=== PATIENT | female | born 1955 | race Hispanic/Latino ===

== ENCOUNTER 2018-08-21 18:57 | Emergency (ER) | payer MEDICARE, MEDICAID ==
[2018-08-21 22:15] LABS: BASO % 0.7 % (0.0-2.0); EOS % 0.6 % (0.0-4.0); HEMOGLOBIN 10.8 g/dL (12.0-16.0); LYMPH # 1.3 K/uL (1.0-4.3); LYMPH % 39.2 % (20.0-40.0); MEAN CELL VOLUME 90.3 fl (81.0-99.0); MEAN CORPUSCULAR HEMOGLOBIN 29.6 pg (27.0-31.0); MEAN CORPUSCULAR HGB CONC 32.8 g/dL (33.0-37.0); MEAN PLATELET VOLUME 7.5 fl (7.2-11.7); MONO # 0.3 K/uL (0.0-0.8); MONO % 8.4 % (0.0-10.0); NEUT # 1.6 K/uL (1.8-7.0); NEUT % 51.1 % (50.0-75.0); NRBC % 0.1 % (0.0-0.0); RBC 3.65 Mil/uL (3.80-5.20); RED CELL DISTRIBUTION WIDTH 14.6 % (11.5-14.5); WHITE BLOOD COUNT 3.2 K/uL (4.8-10.8)
[2018-08-21 22:25] LABS: ALB/GLOB RATIO 1.2 (1.0-2.1); ALBUMIN 4.2 g/dL (3.5-5.0); ALT/SGPT 24 U/L (9-52); AST/SGOT 23 U/L (14-36); BLOOD UREA NITROGEN 16 mg/dl (7-17); GFR NON-AFRICAN AMERICAN > 60
--- NOTE | 2018-08-21 22:29 | ED PDOC ---
HPI: Seizure Time Seen by Provider: 08/21/18 20:40 Chief Complaint (Nursing): Seizure Chief Complaint (Provider): possible seizure History Per: Patient, EMS Recent Seizure Activity Began: Just Before Arrival Length Of Seizures (Duration): Unknown Associated Symptoms: Injury As A Result Of Seizure Activity (left knee) Additional Complaint(s): 63 y/o female history of epilepsy brought in by EMS for evaluation of possible seizure. Patient states she was walking to the bus stop and then woke up on the ground. Patient states she does not remember falling. Patient reports pain to left knee. Denies headache, dizziness, extremity numbness/weakness, neck/back pain, chest pain, shortness of breath, palpitations, abdominal pain, bowel/urine incontinence. Patient states she is compliant with her seizure medication Past Medical History Reviewed: Historical Data, Nursing Documentation Vital Signs: Last Vital Signs Temp 98 F 08/21/18 18:59 Pulse 76 08/21/18 18:59 Resp 16 08/21/18 18:59 BP 135/90 08/21/18 18:59 Pulse Ox 99 08/21/18 18:59 - Medical History PMH: Asthma, Seizures Denies: HIV, Chronic Kidney Disease - Surgical History Surgical History: No Surg Hx - Family History Family History: States: Unknown Family Hx - Immunization History Hx Tetanus Toxoid Vaccination: No Hx Influenza Vaccination: No Hx Pneumococcal Vaccination: No - Home Medications Home Medications: Ambulatory Orders Medication Instructions Recorded Lacosamide [Vimpat] 100 mg PO BID #0 tab 12/10/15 Topiramate [Topamax] 200 mg PO BID #0 tab 12/10/15 Naproxen [Naprosyn] 500 mg PO Q12 PRN #14 tablet 08/21/18 - Allergies Allergies/Adverse Reactions: Allergies Allergy/AdvReac Type Severity Reaction Status Date / Time phenytoin sodium Allergy URTICARIA Verified 08/21/18 18:58 [From Dilantin] phenytoin sodium extended Allergy URTICARIA Verified 08/21/18 18:58 [From Dilantin] Sulfa (Sulfonamide Allergy RASH Verified 08/21/18 18:58 Antibiotics) Review of Systems ROS Statement: Except As Marked, All Systems Reviewed And Found Negative Musculoskeletal: Positive for: Leg Pain (left knee pain) Physical Exam - Reviewed Nursing Documentation Reviewed: Yes Vital Signs Reviewed: Yes - Physical Exam Appears: Positive for: Well, Non-toxic, No Acute Distress Head Exam: Positive for: ATRAUMATIC, NORMAL INSPECTION, NORMOCEPHALIC Skin: Positive for: Normal Color Eye Exam: Positive for: Normal appearance, EOMI, PERRL ENT: Positive for: TM Is/Are (clear bilaterally), Other (abrasion to bridge of nose and chin; no swelling, tenderness). Negative for: Pharyngeal Erythema, Tonsillar Exudate, Tonsillar Swelling Neck: Positive for: Normal, Painless ROM Cardiovascular/Chest: Positive for: Regular Rate, Rhythm Respiratory: Positive for: Normal Breath Sounds Back: Positive for: Normal Inspection Extremity: Positive for: Normal ROM, Swelling (left patella with + abrasions, ecchymosis. Pain with flexion) Neurologic/Psych: Positive for: Alert, Oriented (x3) - Laboratory Results Result Diagrams: 08/21/18 22:05 08/21/18 22:05 Lab Results: Total Bilirubin 0.1 mg/dl (0.2-1.3) L 08/21/18 22:05 AST 23 U/L (14-36) 08/21/18 22:05 ALT 24 U/L (9-52) 08/21/18 22:05 Alkaline Phosphatase 80 U/L (38-126) 08/21/18 22:05 Total Protein 7.7 G/DL (6.3-8.2) 08/21/18 22:05 Albumin 4.2 g/dL (3.5-5.0) 08/21/18 22:05 Globulin 3.5 gm/dL (2.2-3.9) 08/21/18 22:05 Albumin/Globulin Ratio 1.2 (1.0-2.1) 08/21/18 22:05 - ECG ECG: Positive for: Viewed By Me (reviewed by ED attending) ECG Rhythm: Positive for: Sinus Bradycardia (59bpm), Nonspecific Changes O2 Sat by Pulse Oximetry: 99 - Progress ED Course And Treament: -accucheck -ekg -cbc -cmp -CT head -Ct facial bones -left knee xray -PO tylenol EXAM: CT Maxillofacial without Intravenous Contrast. CLINICAL HISTORY: Fall, injury TECHNIQUE: Axial computed tomography images of the face without intravenous contrast. Sagittal and coronal reformatted images were generated. 740.44 mGy-cm CONTRAST: Without COMPARISON: None provided. FINDINGS: BONES: No acute fracture or aggressive appearing osseous lesion. The mandible is intact. SOFT TISSUES: The soft tissues are unremarkable. SINUSES: Right sphenoid sinusitis. The remaining sinuses are clear. ORBITS: The orbits are normal. No retrobulbar hematoma or mass. IMPRESSION: Right sphenoid sinusitis. Unremarkable maxillofacial CT otherwise EXAM: CT Head without Intravenous Contrast. CLINICAL HISTORY: Fall, possible seizure TECHNIQUE: Axial computed tomography images of the head/brain without intravenous contrast. 677.79 mGy-cm COMPARISON: None provided. FINDINGS: BRAIN No acute intraparenchymal hemorrhage. No mass lesion. No CT evidence for acute territorial infarct. No midline shift or extra-axial collections. VENTRICLES: No hydrocephalus. ORBITS: The orbits are unremarkable. SINUSES AND MASTOIDS: The paranasal sinuses and mastoid air cells are clear. BONES: No fracture. SOFT TISSUES: Unremarkable. IMPRESSION: No acute intracranial abnormality On re-eval, patient states knee pain improved. Flexing knee without difficulty. Patient observed in ED for severeal hours and remains AAOx3 throughout visit. Case discussed with ED attending Dr. Nam; agrees with plan to d/c and outpatient follow up ARACELI wrap applied to left knee. Crutches given with demonstration on use. Advised RICE. Rx Naproxen provided Advised follow up Neurologist and PMD Return precautions given Disposition - Clinical Impression Clinical Impression: Facial abrasion, Left knee injury, Seizure - Patient ED Disposition Is Patient to be Admitted: No Counseled Patient/Family Regarding: Studies Performed, Diagnosis, Need For Followup - Disposition Disposition: Routine/Home Disposition Time: 23:49 Condition: IMPROVED Prescriptions: Naproxen [Naprosyn] 500 mg PO Q12 PRN #14 tablet PRN Reason: Pain, Moderate (4-7) Instructions: Skin Abrasions, Seizures, Adult (DC), Knee Pain Forms: [employer] ([employer])
[2018-08-21 23:48] VITALS: TEMP 98.5
[2018-08-22 00:19] VITALS: BP 132/78; PULSE 73; RESP 15
--- NOTE | 2018-08-22 09:48 | CARD ---
APPROVED REPORT Date of service: 08/21/2018 EKG Measurement Heart [id number] <Conclusion> Sinus bradycardia Nonspecific ST and T wave abnormality Abnormal ECG
--- NOTE | 2018-08-22 09:55 | CT ---
Date of service: 08/21/2018 PROCEDURE: CT HEAD WITHOUT CONTRAST. HISTORY: fall, possible seizure COMPARISON: 12/08/2015 TECHNIQUE: Axial computed tomography images were obtained through the head/brain without intravenous contrast. Radiation dose: Total exam DLP = 677.79 mGy-cm. This CT exam was performed using one or more of the following dose reduction techniques: Automated exposure control, adjustment of the mA and/or kV according to patient size, and/or use of iterative reconstruction technique. FINDINGS: HEMORRHAGE: No intracranial hemorrhage. BRAIN: No mass effect or edema. No atrophy or chronic microvascular ischemic changes. VENTRICLES: Unremarkable. No hydrocephalus. CALVARIUM: Unremarkable. PARANASAL SINUSES: The prior chronic sphenoid sinusitis changes appear slightly increased compared to the prior study. MASTOID AIR CELLS: Unremarkable as visualized. No inflammatory changes. OTHER FINDINGS: None. IMPRESSION: No intracranial hemorrhage or mass effect. This was conveyed by the [facility] preliminary report findings Worsening sphenoid sinusitis-an acute on chronic element is compatible with this. This was not conveyed by the preliminary [facility] report.
--- NOTE | 2018-08-22 10:00 | CT ---
Date of service: 08/21/2018 PROCEDURE: CT MAXILLOFACIAL BONES WITHOUT CONTRAST HISTORY: fall COMPARISON: None available. TECHNIQUE: Contiguous axial CT images of the maxillofacial bones were obtained. Coronal and sagittal reformats were generated. Radiation dose: Total exam DLP = 740.44 mGy-cm. This CT exam was performed using one or more of the following dose reduction techniques: Automated exposure control, adjustment of the mA and/or kV according to patient size, and/or use of iterative reconstruction technique. FINDINGS: NASAL BONES: Unremarkable. ORBITS: Unremarkable. PARANASAL SINUSES/ MASTOIDS: Findings compatible with chronic sphenoid sinusitis are noted. Acute on chronic pathology here is possible. MAXILLA: Unremarkable. MANDIBLE/ TEMPOROMANDIBULAR JOINTS: Unremarkable. SKULL BASE: Unremarkable. TEMPORAL BONES: Middle ears and mastoid grossly unremarkable. OTHER FINDINGS: Dental amalgam artifact noted. IMPRESSION: Chronic sphenoid sinusitis. Acute on chronic changes here possible. Fracture or otherwise lytic/destructive lesion identified. Concordant results (preliminary interpretation) provided by [facility].
--- NOTE | 2018-08-22 10:46 | RAD ---
Date of service: 08/21/2018 PROCEDURE: Left Knee Radiographs. HISTORY: Pain. COMPARISON: 06/17/2013 FINDINGS: BONES: No fracture or lytic lesions appreciated. Medial-lateral tibial spine spurring. JOINTS: Mild tricompartmental osteoarthrosis. JOINT EFFUSION: No suprapatellar joint effusion appreciated. The superficial soft tissues anterior and inferior to the patella are thickened--a diffuse prepatellar bursitis with or without concomitant overlying subcutaneous edema here is compatible with this. Although the thickening was present on the prior study inferior to the patella down to the anterior tibial tuberosity with a patellar tendon traverses, the soft tissue fullness immediately anterior to the patella was not present on the previous study. OTHER FINDINGS: Quadriceps insertional enthesophyte in similar IMPRESSION: No fracture or lytic lesion. Interval increased soft tissue swelling pre patella and infra patella as detailed above. The infrapatellar fat pad appear still maintained grossly. A prepatellar bursitis is 1 consideration. Concomitant subcutaneous edema is another. Patellar tendon thickening is suspect. Quadriceps insertional enthesophyte-similar Tricompartmental mild osteoarthrosis
[2018-08-23 04:02] VITALS: O2SAT 99
== END 2018-08-22 00:19 | disposition home or self-care (01) ==
LOC: H.ER 18:57
DX: S00.91XA Abrasion of unspecified part of head, initial encounter (principal); R56.9 Unspecified convulsions; S89.92XA Unspecified injury of left lower leg, initial encounter; W18.30XA Fall on same level, unspecified, initial encounter